=== PATIENT | female | born 1980 | race Caucasian/White ===

== ENCOUNTER → 2016-12-01 | Outpatient (CLI) | payer OTHER ==
[~2016-12-01] MED LIST: OMNIPAQUE 300 MG/ML, 10ML VIAL ONE
== END | disposition home or self-care (01) ==
LOC: RAD 14:25
PROVIDERS: ATTEND Obstetrics & Gynecology Reproductive Endocrinology
DX: N92.2 Excessive menstruation at puberty (principal)
CPT/HCPCS: 74740; Q9967